=== PATIENT | male | born 1945 | race Caucasian/White ===

== ENCOUNTER 2019-02-02 08:33 | Outpatient (CLI) | payer MEDICARE ==
--- NOTE | 2019-02-02 11:10 | CT ---
CT ABDOMEN WITH CONTRAST CT PELVIS WITH CONTRAST: DATE: 02/02/19 HISTORY: 73-year-old: C61 malignant neoplasm of prostate (with increasing PSA levels). C18.7 malignant neoplasm of sigmoid colon. Lower abdominal pain. COMPARISON: None. TECHNIQUE: IV injection of iodinated contrast media: 100 mL [id number]. Oral contrast media: Readi-Cat. FINDINGS: 0.7 x 0.4 x 0.7 cm noncalcified pulmonary nodule in left lower lobe (axial image 4 of 91, series 2; c oronal image 120 of 154, series 601). Nonspecific. No pleural effusion. No osteoblastic skeletal lesion identified, but nuclear medicine bone scan is much more sensitive for the detection of skeletal metastasis due to prostate cancer than CT. No obvious neoplastic tumor inv asion of pelvic side barrett. No iliac chain lymphadenopathy. A few scattered minimally enlarged retrop eritoneal lymph nodes, nonspecific. For example, a 0.8 x 0.4 x 1.0 cm left paraaortic suprarenal retr operitoneal lymph node adjacent to left diaphragmatic yandy. No ernesto hepatis or mesenteric lymphadeno bettye. Tiny 0.5 cm focal hypodensity in hepatic segment 4A of left lobe of liver, too small to charac terize. Otherwise, no lesions that are highly suspicious for hepatic metastasis. 2.2 cm cortical mickey l cyst at upper pole of left kidney. No other renal abnormality bilaterally. No abdominal aortic aneu rysm. Normal pancreas, adrenals, spleen, and appendix. No major pathology of urinary bladder. Absence or medialization of descending colon. No acute diverticulitis. No ascites or pneumoperitoneum. No sm all bowel dilation. IMPRESSION: 1. Nonspecific small left lower lobe pulmonary nodule. 2. A few scattered minimally enlarged retroperitoneal lymph nodes. 3. Tiny hypodensity in left lobe of liver, too small to characterize. 4. Otherwise, no convincing evidence of metastatic disease. 5. Status post subtotal colectomy. JNR POS: JENN
--- NOTE | 2019-02-02 14:36 | NM ---
WHOLE BODY BONE SCAN: 02/02/2019 HISTORY: Malignant neoplasm of sigmoid colon and prostate. TECHNIQUE: Anterior and posterior whole body imaging obtained following the intravenous administration of 33 mil licuries technetium 99m labeled MDP. FINDINGS: There is physiologic radiotracer activity overlying the kidneys and the urinary bladder. Degenerativ e type activity overlies the bilateral ankles, the medial aspect of the left foot, and the right knee . There is also degenerative change involving the shoulders, right greater than left. No rib lesion or spine lesions. No long bone lesions. There is a subtle focus of increased radiotracer activity overlying the calvarium, on the frontal ritesh ging, just to the left of midline. No correlate is seen on the left lateral skull image. The right lateral skull image demonstrates two potential correlates along the inferior aspect of the calvarium, near the skull base. IMPRESSION: Single focus of increased radiotracer activity overlying the calvarium, which could represent a scler otic calvarial lesion. Recommend correlation with a head CT. No additional abnormalities noted. POS: JENN
[2019-02-02] MEDS ORDERED: Iopamidol 370 76% 100 ML VIAL ONE (17:14)
== END 2019-02-02 08:34 | disposition home or self-care (01) ==
LOC: CT 08:33
PROVIDERS: ATTEND Internal Medicine Hematology & Oncology
DX: C61 Malignant neoplasm of prostate (principal); C18.7 Malignant neoplasm of sigmoid colon; R10.9 Unspecified abdominal pain; R91.1 Solitary pulmonary nodule; R59.0 Localized enlarged lymph nodes; K76.89 Other specified diseases of liver; Z90.49 Acquired absence of other specified parts of digestive tract
CPT/HCPCS: 74177; 78306; 82565; A9503; Q9967

== ENCOUNTER 2019-02-10 07:57 | Outpatient (CLI) | payer MEDICARE ==
[2019-02-10] MEDS ORDERED: Iopamidol 370 76% 50 ML VIAL FS ONE (09:21)
--- NOTE | 2019-02-10 09:59 | CT ---
FCT Brain W WO Con: 02/10/2019 12:00 AM CLINICAL HISTORY: Malignant neoplasm of prostate. COMPARISON: None. FINDINGS: Hemorrhage: None. Ventricular system: Normal in size and morphology for the patient's age. Cerebral parenchyma: Microvascular ischemic disease Midline shift: None. Calvarium: Normal. Visualized Paranasal sinuses: Clear. No pathologic enhancing intra-axial mass. Several nonspecific areas of patchy hyperintensity, subcort ical, could relate to pathologic enhancement, although nonspecific by CT imaging. IMPRESSION: Subtle areas of enhancement, nonspecific, predominantly subcortical in location. Dedicated brain MRI with and without contrast is warranted, as small metastatic lesions cannot be excluded on the basis o f this exam.
== END 2019-02-10 07:58 | disposition home or self-care (01) ==
LOC: CT 07:57
PROVIDERS: ATTEND Internal Medicine Hematology & Oncology
DX: R93.0 Abnormal findings on diagnostic imaging of skull and head, not elsewhere classified (principal)
CPT/HCPCS: 70470; 82565; Q9967

== ENCOUNTER 2019-07-23 08:21 | Outpatient (CLI) | payer MEDICARE ==
--- NOTE | 2019-07-23 09:58 | CT ---
EXAM: CT chest, abdomen, and pelvis with IV contrast: HISTORY: Prostate and colon cancer COMPARISON: CT abdomen and pelvis on 02/02/2019. FINDINGS: CT THORAX: Lungs: Previously noted 7 mm pulmonary nodule at the left lung base is again seen and stable in size and appearance. A calcified granuloma is also be an seen at the left lung base. There is an additional faint nodular density seen at the left lung base measuring 7 mm (image 34, series 3). No a dditional discrete pulmonary nodule or mass is seen. There is slight nodularity in a subpleural location left upper anterolateral lung zone of uncertain etiology or clinical significance. Minimal l inear scarring is present in the right middle lobe. Pleura: No pleural effusion. Lymph nodes: No lymphadenopathy. Mediastinum: Subcarinal calcified lymph nodes as well as calcified windows in the AP window and left paratracheal location are noted. Vascular calcifications are seen in the thoracic aorta. Chest wall: No abnormalities CT ABDOMEN AND PELVIS: Liver: A tiny subcentimeter hypodense lesion is again seen in segment 4A of the left hepatic lobe. Gallbladder: Within normal limits. \ Pancreas: Within normal limits. Spleen: Within normal limits. Adrenal glands: Within normal limits. Kidneys: A left renal cyst is again present. The kidneys otherwise have a normal CT appearance. Urinary Bladder: Incompletely distended but grossly normal in appearance. Reproductive organs: There is mild heterogeneity of the prostate gland. Bowel: There is suggestion of a subtotal colectomy. Loops of small bowel are normal in caliber. Adenopathy:No lymphadenopathy within the abdomen or pelvis. Peritoneum: No free fluid or fluid collection is seen. No free intraperitoneal gas is identified. Abdominal wall: No abnormalities seen. Osseous structures: No lytic or sclerotic osseous lesions are identified. IMPRESSION: 1. Nonspecific left lower lobe pulmonary nodules one of which is stable when compared to the prior ex am. The additional pulmonary nodule left lower lobe was not imaged on the prior exam. 2. Stable subcentimeter hypodense lesion left hepatic lobe. 3. No evidence of lymphadenopathy, and no osseous metastatic lesions are appreciated. 4. Left renal cyst. 5. Postsurgical changes related to subtotal colectomy.
== END 2019-07-23 08:22 | disposition home or self-care (01) ==
LOC: CT 08:21
PROVIDERS: ATTEND Internal Medicine Hematology & Oncology
DX: R91.8 Other nonspecific abnormal finding of lung field (principal); C61 Malignant neoplasm of prostate; C18.7 Malignant neoplasm of sigmoid colon; K76.9 Liver disease, unspecified; N28.1 Cyst of kidney, acquired; Z90.49 Acquired absence of other specified parts of digestive tract
CPT/HCPCS: 71260; 74177; 82565